=== PATIENT | female | born 1940 | race Caucasian/White ===

== ENCOUNTER → 2017-01-17 16:27 | Outpatient (CLI) | payer MEDICARE, OTHER ==
[2014-05-15 09:00] VITALS: BMI 25.8
[~2017-01-17 16:27] MED LIST: AMBIEN10 MG PO; ATIVAN0.5 MG PO; CO Q-1030 MG PO; CYCLOBENZAPRINE10 MG PO; DYAZIDE 37.5/251 CAP PO; HYDROCODONE-APA1 TAB PO; MOBIC7.5 MG PO; OMEGA-3100 MG PO; PERCOCET 10/3251 TA1 PO; PRILOSEC20 MG PO; PROZAC40 MG PO; STOOL SOFTENER240 MG PO; SYNTHROID75 MCG PO; VALIUM5 MG PO; ZANAFLEX2 M1 PO; ZOCOR40 MG PO
== END | disposition home or self-care (01) ==
LOC: D.CT 11:00
DX: R94.8 Abnormal results of function studies of other organs and systems (principal)

== ENCOUNTER 2020-02-25 16:20 | Inpatient (IN) | payer MEDICARE, OTHER ==
[~2020-02-25] VITALS: Ht 162.6 cm; Wt 70.5 kg
[2020-02-25 17:22] LABS: BASOPHILS 0.4 % (0-2); EOSINOPHILS 9.1 % (0-7); HEMATOCRIT 35.8 % (36.0-48.0); HEMOGLOBIN 12.1 g/dL (12-16); IMMATURE GRANULOCYTES 3.8 % (0-5); LYMPHOCYTES 23.2 % (15-50); MCH 30.6 pg (26.0-34.0); MCHC 33.8 g/dL (31.0-37.0); MCV 90.6 fL (80.0-100.0); MEAN PLATELET VOLUME 9.3 fL (7.4-10.4); MONOCYTES 9.7 % (2-11); NEUTROPHILS 53.8 % (40-80); PLATELET COUNT 275 10x3/uL (130-400); RBC 3.95 10x6/uL (4.00-5.40); RDW 12.9 % (11.5-14.5); WBC 6.8 10x3/uL (4.8-10.8)
[2020-02-25 17:30] LABS: ANION GAP 13.3 mmol/L (8-16); CALCIUM 9.9 mg/dL (8.5-10.1); CARBON DIOXIDE 22.2 mmol/L (21.0-32.0); CREATININE - SERUM 1.3 mg/dL (0.6-1.3); POTASSIUM - SERUM 4.5 mmol/L (3.5-5.1)
[2020-02-25 17:37] LABS: BILIRUBIN - TOTAL 0.34 mg/dL (0.2-1.3); C-REACTIVE PROTEIN 0.3 mg/dL (0.0-0.9); MAGNESIUM - SERUM 1.4 mg/dL (1.8-2.4); PHOSPHOROUS 3.4 mg/dL (2.5-4.9)
[2020-02-25 18:27] VITALS: BP 178/88; BMI 26.8
[2020-02-25 20:00] VITALS: BP 178/85
--- NOTE | 2020-02-25 21:00 | NUR ---
A&O X 4, UP TO BATHROOM, STANDBY ASSIST. REPORTS PAIN HAS DECREASED. NO FURTHER NEEDS VOICED, CTM.
[2020-02-25 21:43] LABS: BILIRUBIN NEGATIVE (NEGATIVE); KETONE NEGATIVE (NEGATIVE); NITRITE NEGATIVE (NEGATIVE); UROBILINOGEN NORMAL (NORMAL)
--- NOTE | 2020-02-25 23:37 | NUR ---
I have reviewed this patient and I concur with the Shift Assessment completed by the Licensed Practical Nurse today this shift.
[2020-02-26] VITALS: BP 116/58
[2020-02-26 04:00] VITALS: BP 111/61
[2020-02-26 05:33] LABS: BASOPHILS 0.6 % (0-2); EOSINOPHILS 4.5 % (0-7); HEMATOCRIT 32.7 % (36.0-48.0); HEMOGLOBIN 10.7 g/dL (12-16); IMMATURE GRANULOCYTES 0.4 % (0-5); LYMPHOCYTES 26.3 % (15-50); MCH 29.9 pg (26.0-34.0); MCHC 32.7 g/dL (31.0-37.0); MCV 91.3 fL (80.0-100.0); MEAN PLATELET VOLUME 9.4 fL (7.4-10.4); MONOCYTES 11.1 % (2-11); NEUTROPHILS 57.1 % (40-80); PLATELET COUNT 283 10x3/uL (130-400); RBC 3.58 10x6/uL (4.00-5.40); RDW 13.1 % (11.5-14.5); WBC 5.3 10x3/uL (4.8-10.8)
[2020-02-26 05:40] LABS: ALBUMIN 3.5 g/dL (3.4-5.0); BILIRUBIN - TOTAL 0.33 mg/dL (0.2-1.3); CARBON DIOXIDE 23.3 mmol/L (21.0-32.0); CREATININE - SERUM 1.2 mg/dL (0.6-1.3); MAGNESIUM - SERUM 1.4 mg/dL (1.8-2.4); PHOSPHOROUS 3.4 mg/dL (2.5-4.9); POTASSIUM - SERUM 4.3 mmol/L (3.5-5.1); PROTEIN - SERUM 6.3 g/dL (6.4-8.2)
--- NOTE | 2020-02-26 07:58 | NUR ---
RESTING IN BED, NO DISTRESS NOTED, IV TO R HAND, FAMILY IN ROOM, ALLOWED SOME ICE CHIP, CONT TO MONITOR ELECTROLYTES
[2020-02-26 09:58] VITALS: BP 131/63
[2020-02-26 12:47] VITALS: BP 121/61
[2020-02-26 14:06] VITALS: Ht 162.6 cm; Wt 70.5 kg
[2020-02-26 18:06] VITALS: BP 119/57
[2020-02-26 20:00] VITALS: BP 111/57
[2020-02-27] VITALS: BP 102/52
[2020-02-27 04:00] VITALS: BP 121/55
[2020-02-27 07:35] LABS: PH - STOOL 6.5 (7.0-7.5)
[2020-02-27 08:24] LABS: BASOPHILS 0.4 % (0-2); EOSINOPHILS 4.7 % (0-7); HEMATOCRIT 31.7 % (36.0-48.0); HEMOGLOBIN 10.4 g/dL (12-16); IMMATURE GRANULOCYTES 0.2 % (0-5); LYMPHOCYTES 22.8 % (15-50); MCH 30.2 pg (26.0-34.0); MCHC 32.8 g/dL (31.0-37.0); MCV 92.2 fL (80.0-100.0); MEAN PLATELET VOLUME 9.1 fL (7.4-10.4); MONOCYTES 7.1 % (2-11); NEUTROPHILS 64.8 % (40-80); PLATELET COUNT 275 10x3/uL (130-400); RBC 3.44 10x6/uL (4.00-5.40); WBC 4.5 10x3/uL (4.8-10.8)
[2020-02-27 08:43] LABS: ALBUMIN 3.2 g/dL (3.4-5.0); ANION GAP 16.1 mmol/L (8-16); BILIRUBIN - TOTAL 0.31 mg/dL (0.2-1.3); CALCIUM 8.6 mg/dL (8.5-10.1); CARBON DIOXIDE 21.3 mmol/L (21.0-32.0); CREATININE - SERUM 1.1 mg/dL (0.6-1.3); MAGNESIUM - SERUM 1.5 mg/dL (1.8-2.4); PHOSPHOROUS 2.8 mg/dL (2.5-4.9); POTASSIUM - SERUM 4.4 mmol/L (3.5-5.1); PROTEIN - SERUM 5.6 g/dL (6.4-8.2)
[2020-02-27 09:00] VITALS: BP 133/64
[2020-02-27] MEDS ORDERED: BENTYL10 MG PO (12:12)
[2020-02-27] MEDS ORDERED: QUESTRAN PACKET PO (12:13)
[2020-02-27 13:13] VITALS: BP 145/74
--- NOTE | 2020-02-27 13:36 | NUR ---
Nutrition follow-up: Pt and spouse requested information on a healthy diet. RDN visited with pt and spouse. Pt usually cooks meals at home. Pt reports she is taking 5 stool softeners and Miralax every day. Reviewed healthy diet and provided pt with a healthy anti-inflammatory diet handout. Pts diet also advanced from clears to low sodium at lunch today Pt tolerating at this time. RDN following.
--- NOTE | 2020-02-27 13:45 | NUR ---
IV THERAPY REMOVED FROM RIGHT HAND. DISCHARGE INSTRUCTIONS GIVEN. PT AND ADRI () VERBALIZED UNDERSTANDING. VERIFIED THAT SHE WAS DISCHARGED BY A DOCTOR OTHERWISE I WOULDN'T BE ABLE TO DISCHARGE HER. DR MCCLAIN PHONE NUMBER SHOWN TO ADRI SO HE KNEW THE NUMBER. REFUSED WHEELCHAIR OUT.
== END 2020-02-27 13:51 | disposition home or self-care (01) | DRG 392 ==
LOC: D.MS 16:20
PROVIDERS: Emergency Medicine; ADMIT Family Medicine; ATTEND Family Medicine
DX: K52.9 Noninfective gastroenteritis and colitis, unspecified (principal); E78.5 Hyperlipidemia, unspecified; M79.7 Fibromyalgia; F41.8 Other specified anxiety disorders; E03.9 Hypothyroidism, unspecified; G47.00 Insomnia, unspecified; I12.9 Hypertensive chronic kidney disease with stage 1 through stage 4 chronic kidney disease, or unspecified chronic kidney disease; N18.3 Chronic kidney disease, stage 3 (moderate)